=== PATIENT | female | born 1960 | race Hispanic/Latino ===

== ENCOUNTER 2020-12-07 07:49 | Day surgery (SDC) | payer BC ==
[2020-12-06 15:14] VITALS: BMI 27.7
[2020-12-07] MEDS ORDERED: Fluorouracil 100 MG, EPINEPHrine 0.3 MG, Dextrose 50% 3 ML in Ophthalmic Irrigation Sol... IRR SCH (08:15)
[2020-12-07] MEDS ORDERED: Phenylephrine 2.5% Ophth Soln 5 ML BOT ONE (08:39)
[2020-12-07] MEDS ORDERED: Cyclopentolate 1% Opth Drop 2 ML BOT ONE (08:39)
[2020-12-07] MEDS ORDERED: Fentanyl 100 MCG/2 ML VIAL ONE (09:14)
[2020-12-07] MEDS ORDERED: Midazolam HCl 2 mg/2 ml Vial ONE (09:14)
[2020-12-07] MEDS ORDERED: Triamcinolone 40 MG/ML VIAL ONE (09:19)
[2020-12-07] MEDS ORDERED: Lidocaine 4% PF 5 ML AMP ONE (09:19)
[2020-12-07] MEDS ORDERED: Bupivacaine PF 0.75% SDV 10 ML ONE (09:19)
[2020-12-07] MEDS ORDERED: CEFAZOLIN 1 GM VIAL ONE (09:19)
[2020-12-07] MEDS ORDERED: Lidocaine 1% PF 5 ML VIAL ONE (09:19)
[2020-12-07] MEDS ORDERED: Maxitrol 0.1% Opth Oint 3.5 GM TUBE ONE (09:19)
[2020-12-07] MEDS ORDERED: PROPOFOL 200 MG/20 ML VIAL ONE (09:19)
== END 2020-12-07 11:20 | disposition home or self-care (01) ==
LOC: SDC 07:49
PROVIDERS: ATTEND Ophthalmology Retina Specialist
PROC: 08T53ZZ Resection of Left Vitreous, Percutaneous Approach (ICD-10-PCS; principal; 2020-12-07)
DX: H33.42 Traction detachment of retina, left eye (principal); E11.9 Type 2 diabetes mellitus without complications
CPT/HCPCS: 36416; J0171; J0690; J2250; J2704; J3010; J3301; J3490; J9190